=== PATIENT | female | born 1955 | race African-American/Black ===

== ENCOUNTER → 2017-01-02 | Outpatient (CLI) | payer OTHER ==
[~2017-01-02] MED LIST: DICL50 PO; EXEL4.6D TD; KLOR8TAB PO; MEMA28CA PO; OMEP40CA2 PO; RISP1TAB2 PO; Z.0.NO CURRENT MEDS
--- NOTE | 2017-01-03 22:50 | EKG ---
Date Performed: 01/02/2017 Time Performed: 14:12:23 PTAGE: 61 years EKG: Sinus rhythm NONSPECIFIC T-WAVE ABNORMALITY BORDERLINE ECG PREVIOUS TRACING : 05/27/2006 14.31 DOCTOR: Jacqueline Garcia Interpretating Date/Time 01/03/2017 22:48:46
== END ==
LOC: HCAV 13:48
DX: Z01.818 Encounter for other preprocedural examination (principal); R94.31 Abnormal electrocardiogram [ECG] [EKG]
CPT/HCPCS: 93005

== ENCOUNTER → 2017-03-14 | Outpatient (CLI) | payer OTHER ==
[~2017-03-14] MED LIST changes: +DONE10TA7 PO; +HYDR-3583 PO; +HYDR-4107 PO; +RISP0.5T2 PO; +WALKER/ADULT/FO1 MIS; +XARE10TA PO
== END ==
LOC: CPRE 11:22
PROVIDERS: ATTEND Orthopaedic Surgery Orthopaedic Trauma
DX: Z01.810 Encounter for preprocedural cardiovascular examination (principal); Z01.811 Encounter for preprocedural respiratory examination; Z01.812 Encounter for preprocedural laboratory examination; Z01.818 Encounter for other preprocedural examination; Z96.60 Presence of unspecified orthopedic joint implant; Z79.01 Long term (current) use of anticoagulants; Z13.9 Encounter for screening, unspecified; M79.609 Pain in unspecified limb

== ENCOUNTER 2017-03-27 05:11 | Inpatient (IN) | payer OTHER, MEDICARE ==
[~2017-03-27] VITALS: Ht 170.2 cm; Wt 75.3 kg
[2017-03-27] MEDS ORDERED: CHLORHEXIDINE GLUCONATE 2 % 1 PACK (2 CLOTHS) TOPICAL PRN (05:45)
[2017-03-27] MEDS ORDERED: LACTATED RINGER'S 1000 ML IV PRN (05:45)
[2017-03-27] MEDS ORDERED: INSULIN HUMAN REGULAR 1,000 UNITS/10 ML VIAL SQ PRN (05:45)
[2017-03-27] MEDS ORDERED: TRANEXAMIC ACID INJ 1,130 MG in SODIUM CHLORIDE 0.9% INJ 100 ML IV SCH (05:45)
[2017-03-27] MEDS ORDERED: ceFAZolin 2 GM PREMIX 50 ML IV SCH (05:45)
[2017-03-27] MEDS ORDERED: EXPAREL PERI-ARTICULAR INJECTION (TOTAL VOL. 60 ML) P-ARTICULR SCH ×2 (05:45)
[2017-03-27] MEDS ORDERED: VANCOMYCIN 1000 MG/NS 250 ML (for <70 kg) IV SCH ×2 (05:45)
[2017-03-27] MEDS ORDERED: SODIUM CHLORID 0.9% 500 ML IV PRN (05:45)
[2017-03-27] MEDS ORDERED: METOPROLOL TARTRATE 25 MG TAB PO PRN (05:45)
[2017-03-27] MEDS ORDERED: POVIDONE IODINE 5% (ANTISEPSIS KIT) 4 APPLICATIONS EACH NARE PRN (05:45)
[2017-03-27] MEDS ORDERED: CHLORHEXIDINE GLUCONATE 4% SOLN 120 ML BTL TOPICAL SCH (05:45)
[2017-03-27] MEDS ORDERED: DONE10TA7 PO (06:02)
[2017-03-27] MEDS ORDERED: HYDR-4107 PO (06:04)
[2017-03-27] MEDS ORDERED: RISP0.5T2 PO (06:04)
[2017-03-27 06:17] VITALS: BP 129/74; PULSE 61; RESP 20; TEMP 97.9; O2SAT 98
[2017-03-27 06:53] LABS: AUTOMATED NEUTROPHIL # 4.3 TH/MM3 (1.8-7.7); BASOPHIL % 0.5 % (0.0-2.0); EOSINOPHIL # 0.1 TH/MM3 (0-0.4); EOSINOPHIL % 2.1 % (0.0-4.0); HEMATOCRIT 37.9 % (35.0-46.0); HEMO FLAGS DIFF FINAL; LYMPH % 26.2 % (9.0-44.0); LYMPHOCYTE # 1.8 TH/MM3 (1.0-4.8); MEAN CELL VOLUME 92.2 FL (80.0-100.0); MEAN CORPUSCULAR HEMOGLOBIN 30.4 PG (27.0-34.0); MONO % 8.6 % (0.0-8.0); NEUT % 62.6 % (16.0-70.0); PLATELET COUNT 269 TH/MM3 (150-450); RED BLOOD COUNT 4.12 MIL/MM3 (4.00-5.30); RED CELL DISTRIBUTION WIDTH 13.3 % (11.6-17.2); WHITE BLOOD COUNT 6.9 TH/MM3 (4.0-11.0)
[2017-03-27 07:08] LABS: APTT (PATIENT) 29.6 SEC (24.3-30.1); PROTHROMBIN TIME - PATIENT 10.7 SEC (9.8-11.6)
[2017-03-27 07:14] LABS: ALT (GPT) 16 U/L (10-53); ANION GAP 6 MEQ/L (5-15); AST (GOT) 10 U/L (15-37); BICARBONATE 26.8 MEQ/L (21.0-32.0); BLOOD UREA NITROGEN 24 MG/DL (7-18); CHLORIDE 107 MEQ/L (98-107); GLOMERULAR FILTRATION RATE 104 ML/MIN (>89); POTASSIUM 3.8 MEQ/L (3.5-5.1); SODIUM (NA) 140 MEQ/L (136-145)
[2017-03-27 07:17] LABS: ALKALINE PHOSPHATASE 55 U/L (45-117); TOTAL BILIRUBIN ADULT 0.5 MG/DL (0.2-1.0)
[2017-03-27 07:54] LABS: BLOOD, URINE MOD (NEG); COMMENT (UR) CATH-CULT NOT IND; CULTURE IF INDICATED CATH CULTURE NOT IND; GLUCOSE,URINE NEG (NEG); KETONE, URINE NEG (NEG); MUCUS URINE MOD /lpf (OCC); NITRITE,URINE NEG (NEG); URINE COLOR YELLOW (YELLW/STRAW)
== END 2017-03-27 06:45 | disposition home or self-care (01) | DRG 554 ==
LOC: HSDI 05:11
PROVIDERS: ADMIT Orthopaedic Surgery Orthopaedic Trauma; ATTEND Orthopaedic Surgery Orthopaedic Trauma
DX: M16.2 Bilateral osteoarthritis resulting from hip dysplasia (principal); Z53.8 Procedure and treatment not carried out for other reasons
CPT/HCPCS: 80053; 81001; 85025; 85610; 85730; 99211; C9290; G0463

== ENCOUNTER → 2017-04-11 | Outpatient (CLI) | payer OTHER ==
[~2017-04-11] MED LIST changes: -DICL50 PO; -EXEL4.6D TD; -KLOR8TAB PO; -MEMA28CA PO; -OMEP40CA2 PO; -RISP1TAB2 PO; -Z.0.NO CURRENT MEDS
== END ==
LOC: CPRE 10:25
PROVIDERS: ATTEND Orthopaedic Surgery Orthopaedic Trauma
DX: M79.609 Pain in unspecified limb (principal)

== ENCOUNTER 2017-04-15 06:49 | Inpatient (IN) | payer OTHER, MEDICARE ==
[~2017-04-15] VITALS: Ht 165.1 cm; Wt 81.4 kg
[~2017-04-15 06:49] MED LIST changes: -HYDR-3583 PO; -WALKER/ADULT/FO1 MIS; -XARE10TA PO
[2017-04-15] MEDS ORDERED: WALKER/ADULT/FO1 MIS (07:00)
[2017-04-15] MEDS ORDERED: XARE10TA PO (07:00)
[2017-04-15] MEDS ORDERED: HYDR-3583 PO (07:00)
--- NOTE | 2017-04-15 07:01 | HHI.FF ---
Face to Face Verification Diagnosis: (1) Status post total hip replacement, right Physical Therapy Gait training Hip: Total hip, Protocol: Right Right LE Weight Bearing: WB as tolerated Nursing Dressing Changes: Daily dressing change, Coverderm/Primapore (begin adding xeroform to incision POD 10) I have seen patient Merna Brown on 04/15/17. My clinical findings support the need for the requested home health care services because: Ltd mobility - disease progression I certify that my clinical findings support that this patient is homebound because: Post-op weakness Estiven Renee Apr 15, 2017 07:01
[2017-04-15] MEDS ORDERED: VANCOMYCIN 1000 MG/NS 250 ML (for <70 kg) IV SCH ×2 (07:30)
[2017-04-15] MEDS ORDERED: SODIUM CHLORID 0.9% 500 ML IV PRN (07:30)
[2017-04-15] MEDS ORDERED: LACTATED RINGER'S 1000 ML IV PRN (07:30)
[2017-04-15] MEDS ORDERED: CHLORHEXIDINE GLUCONATE 2 % 1 PACK (2 CLOTHS) TOPICAL PRN (07:30)
[2017-04-15] MEDS ORDERED: METOPROLOL TARTRATE 25 MG TAB PO PRN (07:30)
[2017-04-15] MEDS ORDERED: POVIDONE IODINE 5% (ANTISEPSIS KIT) 4 APPLICATIONS EACH NARE PRN (07:30)
[2017-04-15] MEDS ORDERED: INSULIN HUMAN REGULAR 1,000 UNITS/10 ML VIAL SQ PRN (07:30)
[2017-04-15] MEDS ORDERED: ceFAZolin 2 GM PREMIX 50 ML IV SCH (07:30)
[2017-04-15] MEDS ORDERED: CHLORHEXIDINE GLUCONATE 4% SOLN 120 ML BTL TOPICAL SCH (07:30)
[2017-04-15] MEDS ORDERED: EXPAREL PERI-ARTICULAR INJECTION (TOTAL VOL. 60 ML) P-ARTICULR SCH ×2 (09:00)
[2017-04-15] MEDS ORDERED: TRANEXAMIC ACID INJ 1,200 MG in SODIUM CHLORIDE 0.9% INJ 100 ML IV SCH (09:00)
[2017-04-15] MEDS ORDERED: GENTAMICIN SULFATE 80 MG/2 ML VIAL ONE (09:05)
[2017-04-15] MEDS ORDERED: TRANEXAMIC ACID INJ 1,000 MG in SODIUM CHLORIDE 0.9% INJ 100 ML IV ONE (09:30)
[2017-04-15] MEDS ORDERED: MIDAZOLAM HCL 2 MG/2 ML VIAL ONE (10:45)
[2017-04-15] MEDS ORDERED: FAMOTIDINE 20 MG/2 ML VIAL ONE (10:45)
[2017-04-15] MEDS ORDERED: LIDOCAINE HCL 1% PF 5 ML AMPULE OTHER ONE (12:00)
[2017-04-15] MEDS ORDERED: PHENYLEPH/NS 1000 MCG/10 ML SYR IV ONE (12:00)
[2017-04-15] MEDS ORDERED: ESMOLOL HCL 100 MG/10 ML VIAL IV ONE (12:00)
[2017-04-15] MEDS ORDERED: ONDANSETRON HCL 4 MG/2 ML VIAL IV PUSH ONE (12:00)
[2017-04-15] MEDS ORDERED: DEXAMETHASONE SOD PHOS 4 MG/ML VIAL IV ONE (12:00)
[2017-04-15] MEDS ORDERED: PROPOFOL 200 MG/20 ML AMP IV ONE (12:00)
[2017-04-15] MEDS ORDERED: NEOSTIGMINE 3 MG/3 ML SYR IV ONE (12:00)
[2017-04-15] MEDS ORDERED: ROCURONIUM INJ 50 MG/5 ML SYRINGE IV PUSH ONE (12:00)
[2017-04-15] MEDS ORDERED: GLYCOPYRROLATE 1 MG/5 ML SYRINGE IV PUSH ONE (12:00)
[2017-04-15] MEDS ORDERED: hydrALAZINE HCL 20 MG/ML VIAL IV ONE (12:00)
[2017-04-15] MEDS ORDERED: SODIUM CHLORIDE 0.9% 20 ML VIAL IV ONE (12:00)
[2017-04-15] MEDS ORDERED: ePHEDrine/NS 25 MG/5 ML SYR IV ONE (12:00)
--- NOTE | 2017-04-15 13:08 | PD.OP ---
cc: Man Brooks MD Operative Report Date of Surgery: Apr 15, 2017 Preoperative Diagnosis: Severe right hip osteoarthritis with congenital hip dysplasia Postoperative Diagnosis: Procedure: Right total hip arthroplasty via anterior approach Anesthesia: Gen. Surgeon: Man Brooks Application Security Consultant(s): SANDRA Preston PA-C The surgical procedure was assisted by my physician assistant corporate secretary. My P.A. presence was necessary throughout this case for the manipulation and positioning of the surgical extremity. My P.A. was assisting me throughout the duration of this procedure. The skill set of a physician assistant corporate secretary was medically necessary to complete this procedure. During the surgical case the surgical services assistant was working at the back table and the physician assistant corporate secretary was directly assisting me. Operation and Findings: PLAN OF ACTIVITY Weight bear as tolerated. DRAINS: 7-mm BERTRAM drain. IMPLANTS USED DePuy Corail size [9] collared stem with a size [50] [place] Gription cup, [50 /32] Altrx poly liner, and a [+1] ceramic Biolox ceramic head. DETAILS OF PROCEDURE: This patient has a long history of hip pain. Patient was found to have severe osteoarthritis. The patient had radiographic evidence of joint space narrowing with [id number] arthritis and osteophytes around the acetabulum as well as the femoral head. There was also some cystic changes. The patient failed conservative treatment with pain medications, anti-inflammatories, physical therapy, assistive devices including a cane, as well as therapeutic injection of the hip. Patient's hip arthritis was limiting his ability to ambulate and perform activities of daily living. The patient wished to proceed with surgery and informed consent was obtained. Operative site was marked. I discussed both posterior approach and anterior approach with the patient and decision was made for anterior approach. Patient was brought to OR and placed on OR table. IV sedation and general anesthesia was administered by anesthesiologist. Patient positioned on a Tati table and was given IV antibiotics. Time-out procedure was performed. The hip and thigh were prepped with alcohol followed by Hibiclens. The thigh was draped in the usual sterile fashion. Clean Air Suite was used for this procedure. The procedure began with a 5-inch incision over the anterolateral thigh. Subcutaneous tissue was dissected with Bovie. The fascia over the tensa fasciae latae was incised. Care was taken to avoid injury to the lateral femoral cutaneous nerve. The tensor muscle was retracted laterally. Sartorius was retracted medially. Retractors were now placed. The reflected head of the rectus is now elevated. A capsulotomy was performed over the anterior head capsule. Sutures were placed to help retract the capsule. At this point the femoral head and neck were identified. With soft tissue protected, oscillating saw was used to make a cut through the femoral neck, the femoral head was now removed. At this point attention was turned to preparation of the acetabulum. The labrum was excised. The acetabulum was sequentially reamed up to size [50]. A [place] cup was now placed. Fluoroscopy was used to aid in identification of appropriate version. Cup was fully impacted and found to have excellent fit. Hole eliminator was now placed. A screw was placed through the cup for additional stability. The liner was now impacted into the cup. At this point the hip was externally rotated. A hook was placed around the proximal femur. The capsule was released off the lateral and medial femur. The hip was now extended and adducted. Retractors were placed around the proximal femur to allow for exposure. A box osteotome was used to remove the lateral cortex of the femoral neck. A broach was used to help lateralize the prosthesis. Canal finder was used to create a path down the canal. Next, the canal was sequentially broached up to size [9]. This was found to be an excellent fit. Calcar planer was placed. A standard head was placed, and the hip was reduced. The hip was found to have excellent stability with good range of motion. The leg lengths were measured under fluoroscopy and found to be equal compared to preoperatively. Trial broach was removed. The Corail stem was opened. Stem was fully impacted into the proximal femur in appropriate version. The femoral head was placed. The hip was again reduced. Fluoroscopy confirmed excellent alignment of prosthesis. The wound was thoroughly irrigated and capsule was closed with #1 Vicryl. The fascia over the tensor fasciae muscle was closed with #1 Vicryl, subcutaneous tissue was closed with 3-0 Vicryl and the skin was closed with juani and Dermabond skin closure. The capsule layers, muscle, and subcutaneous tissue were injected with a mixture of saline and bupivicaine. Dressings were applied. The patient was transferred to Recovery Room in stable condition. Man Brooks MD Apr 15, 2017 13:08
[2017-04-15] MEDS ORDERED: MORPHINE SULFATE 4 MG/ML INJ IV PUSH PRN (13:15)
[2017-04-15] MEDS ORDERED: ONDANSETRON HCL 4 MG/2 ML VIAL IVP PRN (13:15)
[2017-04-15] MEDS ORDERED: Post-op Orders (for Pharmacy) MISC XX ONE (13:15)
[2017-04-15] MEDS ORDERED: ACETAMINOPHEN/HYDROcodone 325 MG/10 MG TAB PO PRN (13:15)
[2017-04-15] MEDS ORDERED: NALOXONE HCL 0.4 MG/ML AMP IV PRN (13:15)
[2017-04-15] MEDS ORDERED: SODIUM CHLORIDE 0.9% FLUSH 5 ML FLUSH IVF PRN (13:15)
[2017-04-15] MEDS ORDERED: DO NOT ADM ANY ANTICOAGULANT DRUGS PRN (13:33)
[2017-04-15] MEDS: LACTATED RINGER'S 1000 ML INJ 1,000 ML IV SCH (13:40)
[2017-04-15] MEDS: KETOROLAC TROMETHAMINE 30 MG/ML (IVP) VIAL IV PUSH SCH (14:16)
--- NOTE | 2017-04-15 15:18 | RADRPT ---
EXAM DATE/TIME: 04/15/2017 14:35 [facility] COMPARISON: HIP RIGHT (AP&LAT 2/3VWS) WO AP PELVIS, April 15, 2017, 11:31. INDICATIONS : Post right hip surgery. MEDICAL HISTORY : None. SURGICAL HISTORY : None. ENCOUNTER: Initial ACUITY: 1 day PAIN SCORE: Non-responsive. LOCATION: Right hip and pelvis FINDINGS: Portable frontal and crosstable lateral views of the right hip demonstrate interval right total hip a rthroplasty. Femoral and acetabular components appear well seated. Surgical drain and skin juani ar e noted in subcutaneous emphysema noted. There is severe osteoarthritis of the left hip with flatteni ng of the femoral head contour suspect for avascular necrosis. CONCLUSION: Postsurgical changes right hip arthroplasty. Adrien Carroll MD on April 15, 2017 at 15:15 Board Certified Radiologist. This report was verified electronically.
--- NOTE | 2017-04-15 15:18 | RADRPT ---
EXAM DATE/TIME: 04/15/2017 11:31 [facility] COMPARISON: HIP RIGHT LATERAL ONLY W AP PELVIS, April 15, 2017, 14:35. INDICATIONS : Right total hip. MEDICAL HISTORY : Unobtainable SURGICAL HISTORY : Unobtainable ENCOUNTER: Initial ACUITY: 1 day PAIN SCORE: Non-responsive. LOCATION: Right hip FINDINGS: Intraoperative fluoroscopic views of the right hip demonstrate a right total hip arthroplasty. Femora l and acetabular components appear well-seated. CONCLUSION: Postoperative changes right hip arthroplasty. Adrien Carroll MD on April 15, 2017 at 15:16 Board Certified Radiologist. This report was verified electronically.
[2017-04-15 15:25] VITALS: BP 115/61; PULSE 79; RESP 18; TEMP 96.5; O2SAT 99
[2017-04-15] MEDS: ceFAZolin 2 GM PREMIX 50 ML IV SCH ×2 (17:24→23:21)
[2017-04-15] MEDS: SODIUM CHLORIDE 0.9% FLUSH 5 ML FLUSH IVF SCH (19:58)
[2017-04-15] MEDS: DONEPEZIL HCL 5 MG TAB PO SCH (19:59)
[2017-04-15 20:00] VITALS: BP 105/58; PULSE 88; RESP 20; TEMP 98.7; O2SAT 98
[2017-04-15] MEDS: ACETAMINOPHEN/HYDROcodone 325 MG/7.5 MG TAB PO PRN (21:13)
[2017-04-15] MEDS: VANCOMYCIN INJ 1,000 MG in SODIUM CHLOR 0.9% 250 ML INJ 250 ML IV SCH (21:13)
[2017-04-15 23:36] VITALS: O2SAT 98
[2017-04-16] VITALS (8 sets, daily range): BP systolic 92–121; BP diastolic 43–70; PULSE 58–70; RESP 17–20; TEMP 97.3–99.3; O2SAT 96–99
[2017-04-16] MEDS: KETOROLAC TROMETHAMINE 30 MG/ML (IVP) VIAL IV PUSH SCH ×2 (01:51→14:58)
[2017-04-16] MEDS: ACETAMINOPHEN/HYDROcodone 325 MG/7.5 MG TAB PO PRN ×5 (01:51→22:50)
[2017-04-16] MEDS: LACTATED RINGER'S 1000 ML INJ 1,000 ML IV SCH ×2 (01:52→14:04)
[2017-04-16] MEDS: ceFAZolin 2 GM PREMIX 50 ML IV SCH (05:13)
[2017-04-16 05:44] LABS: HEMATOCRIT 28.1 % (35.0-46.0); REVIEW FLAG FINAL
--- NOTE | 2017-04-16 08:06 | PD.ORT.PN ---
Subjective Subjective Remarks Doing well status post right total hip arthroplasty POD 1 Objective Vitals Vital Signs Date Time Temp Pulse Resp B/P (MAP) Pulse Ox O2 Delivery O2 Flow Rate FiO2 04/16/17 04:00 98.8 61 20 104/56 (72) 97 04/16/17 00:00 97.8 70 20 108/58 (75) 98 04/15/17 23:36 98 Nasal Cannula 2.00 04/15/17 20:00 98.7 88 20 105/58 (74) 98 04/15/17 20:00 98 Room Air 04/15/17 15:30 Room Air 04/15/17 15:25 96.5 79 18 115/61 (79) 99 04/15/17 15:00 98.2 76 18 102/54 (70) 97 Room Air 04/15/17 14:30 89 18 98/50 (66) 99 Room Air 04/15/17 14:15 96 18 115/59 (77) 99 Nasal Cannula 2 04/15/17 14:00 105 18 128/61 (83) 100 Nasal Cannula 2 04/15/17 13:45 102 15 107/63 (78) 99 Nasal Cannula 2 04/15/17 13:36 98.3 115 15 114/55 (74) 99 Nasal Cannula 2 I/O 04/15/17 04/15/17 04/15/17 04/16/17 04/16/17 04/16/17 07:00 15:00 23:00 07:00 15:00 23:00 Intake Total 1830 ml 300 ml 1098 ml 320 ml Output Total 300 ml 130 ml 70 ml 600 ml Balance 1530 ml 170 ml 1028 ml -280 ml Intake Oral 320 ml IV Total 330 ml 300 ml 1098 ml Other 1500 ml Output Urine Total 600 ml Drainage Total 130 ml 70 ml Estimated Blood Loss 300 ml # Voids 1 # Bowel Movements 0 Result Diagram: 04/16/17 0447 Imaging Last 24 hours Impressions Hip and Pelvis X-Ray 04/15/17 1304 Signed Impressions: Service Date/Time: Saturday, April 15, 2017 14:35 - CONCLUSION: Postsurgical changes right hip arthroplasty. Adrien Carroll MD Objective Remarks Right lower extremity: Clean dry dressings over incision. Drain site does have mild drainage with drain in place. Compartments are soft. Distally intact sensation with good capillary refills and strong dorsal flexion plantar flexion of ankle Assessment & Plan Problem List: (1) Status post total hip replacement, right ICD Codes: Z96.641 - Presence of right artificial hip joint Assessment and Plan Physical therapy weightbearing as tolerated twice a day Discontinue drain after physical therapy this morning Dry dressings over incision and then begin adding Xeroform POD 10, Xeroform over drain site after drain is pulled no Steri-Strips Incentive spirometry Lovenox Case management for rehabilitation placement SCDs Follow-up Dr. Brooks or PA in 2 weeks Bob Curran Jr. Apr 16, 2017 08:06
[2017-04-16] MEDS: SODIUM CHLORIDE 0.9% FLUSH 5 ML FLUSH IVF SCH ×2 (09:00→20:01)
[2017-04-16] MEDS: risperiDONE 0.5 MG TAB PO SCH (09:59)
[2017-04-16] MEDS ORDERED: INFLUENZA VIRUS VACCINE (QUADRIVALENT) 0.5 ML SYR IM ONE (10:00)
[2017-04-16] MEDS: VANCOMYCIN INJ 1,000 MG in SODIUM CHLOR 0.9% 250 ML INJ 250 ML IV SCH (10:11)
[2017-04-16] MEDS: ENOXAPARIN SODIUM 40 MG/0.4 ML SYRINGE SQ SCH (14:58)
[2017-04-16] MEDS: DOCUSATE SODIUM 100 MG CAP PO SCH (20:02)
[2017-04-16] MEDS: DONEPEZIL HCL 5 MG TAB PO SCH (20:02)
[2017-04-17] VITALS (7 sets, daily range): BP systolic 100–140; BP diastolic 47–69; PULSE 60–87; RESP 15–18; TEMP 98–99.9; O2SAT 96–99
[2017-04-17] MEDS: KETOROLAC TROMETHAMINE 30 MG/ML (IVP) VIAL IV PUSH SCH (02:00)
[2017-04-17] MEDS: ACETAMINOPHEN/HYDROcodone 325 MG/7.5 MG TAB PO PRN ×4 (02:14→21:05)
[2017-04-17] MEDS: LACTATED RINGER'S 1000 ML INJ 1,000 ML IV SCH ×2 (02:34→18:35)
--- NOTE | 2017-04-17 06:45 | PD.ORT.PN ---
Subjective Subjective Remarks POD 2 s/p right total hip doing well. pain controlled. out of bed with therapy Objective Vitals Vital Signs Date Time Temp Pulse Resp B/P (MAP) Pulse Ox O2 Delivery O2 Flow Rate FiO2 04/17/17 00:00 99.3 64 15 100/47 (64) 99 04/16/17 20:00 99 Room Air 04/16/17 19:00 98.4 64 17 102/52 (69) 99 04/16/17 18:33 96 Nasal Cannula 2.00 04/16/17 16:00 98.0 63 19 118/70 (86) 96 04/16/17 12:00 97.3 62 18 92/43 (59) 96 04/16/17 09:12 96 Nasal Cannula 2.00 04/16/17 08:00 99.3 58 19 121/69 (86) 96 I/O 04/16/17 04/16/17 04/16/17 04/17/17 04/17/17 04/17/17 07:00 15:00 23:00 07:00 15:00 23:00 Intake Total 1098 ml 1370 ml 979 ml 240 ml Output Total 70 ml 600 ml Balance 1028 ml 770 ml 979 ml 240 ml Intake Oral 1120 ml 480 ml 240 ml IV Total 1098 ml 250 ml 499 ml Output Urine Total 600 ml Drainage Total 70 ml # Voids 4 2 2 # Bowel Movements 1 0 0 Result Diagram: 04/16/17 0447 Imaging Last 24 hours Impressions Hip and Pelvis X-Ray 04/15/17 1304 Signed Impressions: Service Date/Time: Saturday, April 15, 2017 14:35 - CONCLUSION: Postsurgical changes right hip arthroplasty. Adrien Carroll MD Objective Remarks Right lower extremity: Clean dry dressings over incision. Drain site does have mild drainage with drain in place. Compartments are soft. Distally intact sensation with good capillary refills and strong dorsal flexion plantar flexion of ankle Assessment & Plan Problem List: (1) Status post total hip replacement, right ICD Codes: Z96.641 - Presence of right artificial hip joint Assessment and Plan 1) Right Anterior FRIEDA - POD 2 Physical therapy weightbearing as tolerated twice a day Dry dressings over incision and then begin adding Xeroform POD 10, Xeroform over drain site after drain is pulled no Steri-Strips Incentive spirometry Lovenox Case management for rehabilitation placement SCDs clear for DC to rehab when arrangements made Follow-up Dr. Brooks or PA in 2 weeks Estiven Renee Apr 17, 2017 06:45
--- NOTE | 2017-04-17 07:17 | HHI.DS ---
Discharge Summary Admission Date Apr 15, 2017 at 06:49 Discharge Date: Apr 17, 2017 Admitting Diagnosis Right hip osteoarthritis Diagnosis: (1) Status post total hip replacement, right Diagnosis: Principal ICD Codes: Z96.641 - Presence of right artificial hip joint Procedures Right anterior total hip arthroplasty CBC/BMP: 04/16/17 0447 Significant Findings Laboratory Tests Test 04/16/17 04:47 Hemoglobin 9.2 GM/DL (11.6-15.3) Hematocrit 28.1 % (35.0-46.0) PE at Discharge Right lower extremity: Clean dry dressings over incision. Drain site does have mild drainage with drain in place. Compartments are soft. Distally intact sensation with good capillary refills and strong dorsal flexion plantar flexion of ankle Hospital Course patient admitted for outpatient for elective right total hip arthroplasty. Tolerated the procedure well. Was admitted 6 north. Was out of bed on postoperative day 0 in standing with therapy. By postoperative day 1 she was ambulating with a walker. Her pain is well-controlled. She is hemodynamically stable, ambulating with therapy, and fit for discharge to rehabilitation facility. She'll be discharged to a rehabilitation facility whenever arrangements are made. She'll remain weightbearing as tolerated. She will have daily dressing changes. She'll follow-up in the office Dr. Christopher or his PA in 2 weeks Pt Condition on Discharge: Fair Discharge Disposition: Discharge to SNF Discharge Instructions Diet Instructions: As Tolerated, No Restrictions Activities You Can Perform: Weight Bearing as Ahsan Follow up Referrals: Orthopedics - 2 Weeks @ [facility] with Man Christopher MD New Medications: Hydrocodone-Acetaminophen (Hydrocodone-Acetaminophen) 10-325 mg Tab 1 TAB PO Q4H PRN for PAIN, #60 TAB 0 Refills Rivaroxaban (Xarelto) 10 Mg Tab 10 MG PO DAILY for Blood Clot Prevention, #14 TAB 0 Refills Walker/Adult/Folding (Walker/Adult/Folding) 1 Mis Mis EA .ROUTE DIRECTED, #1 0 Refills Continued Medications: Donepezil (Donepezil) 10 Mg Tab 10 MG PO HS for Dementia, TAB 0 Refills Risperidone (Risperidone) 0.5 Mg Tab 0.5 MG PO DAILY, TAB 0 Refills Discontinued Medications: Hydrocodone-Acetaminophen (Hydrocodone-Acetaminophen) 5-300 Mg Tab 1 TAB PO Q4H PRN for PAIN, TAB 0 Refills Estiven Renee Apr 17, 2017 07:17
[2017-04-17] MEDS: DOCUSATE SODIUM 100 MG CAP PO SCH ×2 (08:55→21:05)
[2017-04-17] MEDS: risperiDONE 0.5 MG TAB PO SCH (08:55)
[2017-04-17] MEDS: SODIUM CHLORIDE 0.9% FLUSH 5 ML FLUSH IVF SCH ×2 (08:56→21:05)
[2017-04-17] MEDS: ENOXAPARIN SODIUM 40 MG/0.4 ML SYRINGE SQ SCH (14:58)
[2017-04-17] MEDS: DONEPEZIL HCL 5 MG TAB PO SCH (21:05)
[2017-04-18 00:02] VITALS: BP 101/52; PULSE 75; RESP 17; TEMP 99.2; O2SAT 97
[2017-04-18] MEDS: LACTATED RINGER'S 1000 ML INJ 1,000 ML IV SCH ×2 (02:14→16:04)
[2017-04-18] MEDS: ACETAMINOPHEN/HYDROcodone 325 MG/7.5 MG TAB PO PRN (06:26)
--- NOTE | 2017-04-18 07:12 | PD.ORT.PN ---
Subjective Subjective Remarks Doing well. No new complaints Objective Vitals Vital Signs Date Time Temp Pulse Resp B/P (MAP) Pulse Ox O2 Delivery O2 Flow Rate FiO2 04/18/17 00:02 99.2 75 17 101/52 (68) 97 04/17/17 21:25 97 Nasal Cannula 2.00 04/17/17 20:00 99.4 80 17 111/60 (77) 97 04/17/17 16:00 99.9 85 18 118/62 (80) 96 04/17/17 12:00 98.0 87 16 105/59 (74) 97 04/17/17 10:00 16 04/17/17 09:18 96 Nasal Cannula 2.00 04/17/17 08:00 98.5 60 16 140/69 (92) 98 I/O 04/17/17 04/17/17 04/17/17 04/18/17 04/18/17 04/18/17 07:00 15:00 23:00 07:00 15:00 23:00 Intake Total 240 ml 960 ml 240 ml Balance 240 ml 960 ml 240 ml Intake Oral 240 ml 960 ml 240 ml IV Total 0 ml # Voids 2 5 4 # Bowel Movements 0 1 0 Result Diagram: 04/16/17 0447 Imaging Last 24 hours Impressions Hip and Pelvis X-Ray 04/15/17 1304 Signed Impressions: Service Date/Time: Saturday, April 15, 2017 14:35 - CONCLUSION: Postsurgical changes right hip arthroplasty. Adrien Carroll MD Procedures Right anterior total hip arthroplasty Objective Remarks Right lower extremity: Clean dry dressings over incision. Drain site does have mild drainage. Compartments are soft. Distally intact sensation with good capillary refills and strong dorsal flexion plantar flexion of ankle Assessment & Plan Problem List: (1) Status post total hip replacement, right ICD Codes: Z96.641 - Presence of right artificial hip joint Assessment and Plan 1) Right Anterior FRIEDA - POD 3 Physical therapy weightbearing as tolerated twice a day Dry dressings over incision and then begin adding Xeroform POD 10, Xeroform over drain site Incentive spirometry Lovenox Case management for rehabilitation placement SCDs clear for DC to rehab when arrangements made Follow-up Dr. Brooks or PA in 2 weeks Bob Curran Jr. Apr 18, 2017 07:12
[2017-04-18 08:00] VITALS: BP 107/54; PULSE 63; RESP 16; TEMP 98.4; O2SAT 97
[2017-04-18] MEDS: DOCUSATE SODIUM 100 MG CAP PO SCH (08:53)
[2017-04-18] MEDS: risperiDONE 0.5 MG TAB PO SCH (08:53)
[2017-04-18] MEDS: SODIUM CHLORIDE 0.9% FLUSH 5 ML FLUSH IVF SCH (08:53)
[2017-04-18 10:46] VITALS: O2SAT 98
[2017-04-18 12:00] VITALS: BP 108/69; PULSE 77; RESP 16; TEMP 98; O2SAT 97
[2017-04-18] MEDS ORDERED: NEOSTIGMINE 3 MG/3 ML SYR IV ONE (12:00)
[2017-04-18] MEDS ORDERED: ESMOLOL HCL 100 MG/10 ML VIAL IV ONE (12:00)
[2017-04-18] MEDS ORDERED: DEXAMETHASONE SOD PHOS 4 MG/ML VIAL IV ONE (12:00)
[2017-04-18] MEDS ORDERED: ROCURONIUM INJ 50 MG/5 ML SYRINGE IV PUSH ONE (12:00)
[2017-04-18] MEDS ORDERED: LACTATED RINGER'S 1000 ML INJ 1,000 ML IV ONE (12:00)
[2017-04-18] MEDS ORDERED: GLYCOPYRROLATE 1 MG/5 ML SYRINGE IV PUSH ONE (12:00)
[2017-04-18] MEDS ORDERED: ePHEDrine/NS 25 MG/5 ML SYR IV ONE (12:00)
[2017-04-18] MEDS ORDERED: PHENYLEPH/NS 1000 MCG/10 ML SYR IV ONE (12:00)
[2017-04-18] MEDS ORDERED: LIDOCAINE HCL 1% PF 5 ML AMPULE OTHER ONE (12:00)
[2017-04-18] MEDS ORDERED: PROPOFOL 200 MG/20 ML AMP IV ONE (12:00)
[2017-04-18] MEDS ORDERED: SODIUM CHLORIDE 0.9% 10 ML VIAL IV FLUSH ONE (12:00)
[2017-04-18] MEDS ORDERED: ONDANSETRON HCL 4 MG/2 ML VIAL IV PUSH ONE (12:00)
[2017-04-18] MEDS ORDERED: hydrALAZINE HCL 20 MG/ML VIAL IV ONE (12:00)
[2017-04-18] MEDS: ENOXAPARIN SODIUM 40 MG/0.4 ML SYRINGE SQ SCH (12:34)
[2017-04-18 16:58] VITALS: O2SAT 97
== END 2017-04-18 17:05 | DRG 470 ==
LOC: HSDI 06:49 → N06A 15:26
PROVIDERS: ADMIT Orthopaedic Surgery Orthopaedic Trauma; ATTEND Orthopaedic Surgery Orthopaedic Trauma
PROC: 0SR904A Replacement of Right Hip Joint with Ceramic on Polyethylene Synthetic Substitute, Uncemented, Open Approach (ICD-10-PCS; principal; 2017-04-15 11:00)
DX: M16.11 Unilateral primary osteoarthritis, right hip (principal); F03.90 Unspecified dementia, unspecified severity, without behavioral disturbance, psychotic disturbance, mood disturbance, and anxiety; I10 Essential (primary) hypertension; Q65.89 Other specified congenital deformities of hip; Z23 Encounter for immunization
CPT/HCPCS: 73501; 73502; 76000; 85014; 85018; 86850; 86900; 86901; 90471; 90686; C1776; C9290; G0008; J0360; J0690; J1100; J1580; J1650; J1885; J2250; J2370; J2405; J2710; J3010; J3370; J7050; J7120; Q2038

== ENCOUNTER → 2017-08-05 | Outpatient (CLI) | payer OTHER ==
[~2017-08-05] MED LIST changes: +ASPI1CHW4 CHEW; +HYDR-3583 PO; -HYDR-4107 PO; +MEMA1TAB PO; +WALKER/ADULT/FO1 MIS; +XARE10TA PO
== END ==
LOC: CPRE 09:27
PROVIDERS: ATTEND Orthopaedic Surgery Orthopaedic Trauma
DX: Z01.812 Encounter for preprocedural laboratory examination (principal)

== ENCOUNTER → 2017-08-06 | Outpatient (CLI) | payer OTHER ==
[~2017-08-06] MED LIST changes: -ASPI1CHW4 CHEW; -XARE10TA PO
--- NOTE | 2017-08-07 22:40 | EKG ---
Date Performed: 08/06/2017 Time Performed: 14:40:49 PTAGE: 61 years EKG: SINUS BRADYCARDIA NONSPECIFIC T-WAVE ABNORMALITY BORDERLINE ECG PREVIOUS TRACING : 01/02/2017 14.12 Since previous tracing, no significant change noted DOCTOR: Montrell Lamas Interpretating Date/Time 08/07/2017 22:39:40
== END ==
LOC: HCAV 14:26
PROVIDERS: ATTEND Orthopaedic Surgery Orthopaedic Trauma
DX: Z01.810 Encounter for preprocedural cardiovascular examination (principal); Z01.811 Encounter for preprocedural respiratory examination
CPT/HCPCS: 93005

== ENCOUNTER 2017-08-19 05:15 | Inpatient (IN) | payer OTHER, MEDICARE ==
[~2017-08-19] VITALS: Ht 165.1 cm; Wt 79.3 kg
[~2017-08-19 05:15] MED LIST changes: -WALKER/ADULT/FO1 MIS
[2017-08-19] MEDS ORDERED: CHLORHEXIDINE GLUCONATE 4% SOLN 120 ML BTL TOPICAL SCH (05:45)
[2017-08-19] MEDS ORDERED: DEXAMETHASONE SOD PHOS 20 MG/5 ML VIAL IV PUSH SCH (05:45)
[2017-08-19] MEDS ORDERED: CHLORHEXIDINE GLUCONATE 2 % 1 PACK (2 CLOTHS) TOPICAL PRN (05:45)
[2017-08-19] MEDS ORDERED: TRANEXAMIC ACID IV SCH (05:45)
[2017-08-19] MEDS ORDERED: LACTATED RINGER'S 1000 ML IV PRN (05:45)
[2017-08-19] MEDS ORDERED: EXPAREL PERI-ARTICULAR INJECTION (TOTAL VOL. 60 ML) P-ARTICULR SCH ×2 (05:45)
[2017-08-19] MEDS ORDERED: POVIDONE IODINE 5% (ANTISEPSIS KIT) 4 APPLICATIONS EACH NARE PRN (05:45)
[2017-08-19] MEDS ORDERED: ceFAZolin 2 GM PREMIX 50 ML IV SCH (05:45)
[2017-08-19] MEDS ORDERED: SODIUM CHLORIDE 0.9% IV SCH (05:45)
[2017-08-19] MEDS ORDERED: VANCOMYCIN 1000 MG/NS 250 ML (for <70 kg) IV SCH ×2 (05:45)
[2017-08-19] MEDS ORDERED: METOPROLOL TARTRATE 25 MG TAB PO PRN (05:45)
[2017-08-19] MEDS ORDERED: SODIUM CHLORID 0.9% 500 ML IV PRN (05:45)
[2017-08-19] MEDS ORDERED: GENTAMICIN SULFATE 80 MG/2 ML VIAL ONE (06:12)
[2017-08-19] MEDS ORDERED: HYDR-3583 PO (06:35)
[2017-08-19] MEDS ORDERED: XARE10TA PO (06:35)
[2017-08-19] MEDS ORDERED: ASPI1CHW4 CHEW (06:35)
[2017-08-19] MEDS ORDERED: BUPIVACAINE/EPINEPHRINE 0.25% 50 ML VIAL ONE (07:11)
--- NOTE | 2017-08-19 08:58 | PD.OP ---
cc: Man Brooks MD Operative Report Date of Surgery: Aug 19, 2017 Preoperative Diagnosis: Severe left hip osteoarthritis, congenital hip dysplasia Postoperative Diagnosis: Procedure: Left total hip arthroplasty by Anterior approach Anesthesia: Gen. Surgeon: Man Brooks Integrated Logistics Programs Director(s): SANDRA Modi PA-C The surgical procedure was assisted by my physician medicine assistant. My P.A. presence was necessary throughout this case for the manipulation and positioning of the surgical extremity. My P.A. was assisting me throughout the duration of this procedure. The skill set of a physician medicine assistant was medically necessary to complete this procedure. During the surgical case the surgical training specialist was working at the back table and the physician medicine assistant was directly assisting me. Operation and Findings: PLAN OF ACTIVITY Weight bear as tolerated. DRAINS: 7-mm BERTRAM drain. IMPLANTS USED DePuy Corail size [9] collared stem with a size [48] [place] Gription cup, [48/ 32] Altrx poly liner, and a [32+1] ceramic Biolox ceramic head. DETAILS OF PROCEDURE: This patient has a long history of hip pain. Patient was found to have severe left hip osteoarthritis secondary to congenital hip dysplasia. The patient had radiographic evidence of joint space narrowing with [id number] arthritis and osteophytes around the acetabulum as well as the femoral head. There was also some cystic changes. The patient failed conservative treatment with pain medications, anti-inflammatories, physical therapy, assistive devices including a cane, as well as therapeutic injection of the hip. Patient's hip arthritis was limiting his ability to ambulate and perform activities of daily living. The patient wished to proceed with surgery and informed consent was obtained. Operative site was marked. I discussed both posterior approach and anterior approach with the patient and decision was made for anterior approach. Patient was brought to OR and placed on OR table. IV sedation and general anesthesia was administered by anesthesiologist. Patient positioned on a Tati table and was given IV antibiotics. Time-out procedure was performed. The hip and thigh were prepped with alcohol followed by Hibiclens. The thigh was draped in the usual sterile fashion. Clean Air Suite was used for this procedure. The procedure began with a 5-inch incision over the anterolateral thigh. Subcutaneous tissue was dissected with Bovie. The fascia over the tensa fasciae latae was incised. Care was taken to avoid injury to the lateral femoral cutaneous nerve. The tensor muscle was retracted laterally. Sartorius was retracted medially. Retractors were now placed. The reflected head of the rectus is now elevated. A capsulotomy was performed over the anterior head capsule. Sutures were placed to help retract the capsule. At this point the femoral head and neck were identified. With soft tissue protected, oscillating saw was used to make a cut through the femoral neck, the femoral head was now removed. At this point attention was turned to preparation of the acetabulum. The labrum was excised. The acetabulum was sequentially reamed up to size [48]. Patient had a very shallow acetabulum. The cup was medialized down to the medial wall. A trial cup was placed and visualized under fluoroscopy. Trial was removed and a [place] cup was now placed. Fluoroscopy was used to aid in identification of appropriate version. Cup was fully impacted and found to have excellent fit. Hole eliminator was now placed. 2 screws were placed for additional stability given the dysplasia of the acetabulum. The liner was now impacted into the cup. At this point the hip was externally rotated. A hook was placed around the proximal femur. The capsule was released off the lateral and medial femur. The hip was now extended and adducted. Retractors were placed around the proximal femur to allow for exposure. A box osteotome was used to remove the lateral cortex of the femoral neck. A broach was used to help lateralize the prosthesis. Canal finder was used to create a path down the canal. Next, the canal was sequentially broached up to size [9]. This was found to be an excellent fit. Calcar planer was placed. A standard head was placed, and the hip was reduced. The hip was found to have excellent stability with good range of motion. The leg lengths were measured under fluoroscopy and found to be equal compared to preoperatively. Trial broach was removed. The [place] stem was opened. Stem was fully impacted into the proximal femur in appropriate version. The femoral head was placed. The hip was again reduced. Fluoroscopy confirmed excellent alignment of prosthesis. The wound was thoroughly irrigated and capsule was closed with #1 Vicryl. The fascia over the tensor fasciae muscle was closed with #1 Vicryl, subcutaneous tissue was closed with 3-0 Vicryl and the skin was closed with juani and Dermabond skin closure. The capsule layers, muscle, and subcutaneous tissue were injected with a mixture of saline and bupivicaine. Dressings were applied. The patient was transferred to Recovery Room in stable condition. Man Brooks MD Aug 19, 2017 08:58
[2017-08-19] MEDS ORDERED: ACETAMINOPHEN/HYDROcodone 325 MG/7.5 MG TAB PO PRN (09:00)
[2017-08-19] MEDS ORDERED: NALOXONE HCL 0.4 MG/ML AMP IV PUSH PRN (09:00)
[2017-08-19] MEDS ORDERED: ACETAMINOPHEN/HYDROcodone 325 MG/10 MG TAB PO PRN (09:00)
[2017-08-19] MEDS ORDERED: ACETAMINOPHEN/HYDROcodone 325 MG/5 MG TAB PO PRN (09:00)
[2017-08-19] MEDS ORDERED: MORPHINE SULFATE 4 MG/ML INJ IV PUSH PRN (09:00)
[2017-08-19] MEDS ORDERED: ONDANSETRON HCL 4 MG/2 ML VIAL IVP PRN (09:00)
[2017-08-19] MEDS ORDERED: *ONDANSETRON 4 MG VIAL PERIprocedural Use ONLY ONE (09:40)
[2017-08-19] MEDS: LACTATED RINGER'S 1000 ML INJ 1,000 ML IV SCH (09:53)
--- NOTE | 2017-08-19 09:57 | RADRPT ---
EXAM DATE/TIME: 08/19/2017 07:15 [facility] COMPARISON: No previous studies available for comparison. INDICATIONS : Left total hip arthroplasty. MEDICAL HISTORY : Unobtainable. SURGICAL HISTORY : Unobtainable. ENCOUNTER: Initial ACUITY: 1 day PAIN SCORE: Non-responsive. LOCATION: Left hip CONCLUSION: Fluoroscopic images during left hip prosthesis placement. No hardware loosening. Cristopher Simons MD on August 19, 2017 at 9:54 Board Certified Radiologist. This report was verified electronically.
[2017-08-19] MEDS: risperiDONE 0.5 MG TAB PO SCH (10:00)
[2017-08-19] MEDS: MEMANTINE HCL 5 MG TAB PO SCH (10:00)
[2017-08-19] MEDS ORDERED: DO NOT ADM ANY ANTICOAGULANT DRUGS PRN (10:00)
[2017-08-19] MEDS: CELECOXIB 200 MG CAP PO SCH ×2 (10:00→20:44)
[2017-08-19] MEDS ORDERED: Post-op Orders (for Pharmacy) XX ONE (10:00)
[2017-08-19] MEDS ORDERED: KETOROLAC TROMETHAMINE 30 MG/ML (IVP) VIAL IV PUSH SCH (10:00)
[2017-08-19] MEDS ORDERED: TRANEXAMIC ACID INJ 1,000 MG in SODIUM CHLORIDE 0.9% INJ 100 ML IV ONE (10:00)
[2017-08-19] MEDS: ACETAMINOPHEN 1000 MG/100 ML 100 ML IV SCH ×2 (10:21→23:04)
--- NOTE | 2017-08-19 10:30 | RADRPT ---
EXAM DATE/TIME: 08/19/2017 09:46 [facility] COMPARISON: HIP LEFT (AP&LAT 2/3VWS) WO AP PELVIS, August 19, 2017, 7:15. INDICATIONS : Post op left total hip replacement. MEDICAL HISTORY : None. SURGICAL HISTORY : None. ENCOUNTER: Initial ACUITY: 1 day PAIN SCORE: 0/10 LOCATION: Left Hip FINDINGS: A lateral view of the left hip with AP pelvis was obtained. No definite fractures, dislocations, lyt ic or sclerotic lesions are seen. Bilateral hip prostheses. Post surgical changes left hip. CONCLUSION: Postoperative left hip. Cristopher Simons MD on August 19, 2017 at 10:26 Board Certified Radiologist. This report was verified electronically.
[2017-08-19] MEDS ORDERED: *MEPERIDINE 25 MG INJ VIAL PERIprocedural Use ONLY ONE (10:43)
[2017-08-19 12:30] VITALS: BP 128/66; PULSE 68; RESP 18; TEMP 96.3; O2SAT 100
[2017-08-19] MEDS: ceFAZolin 2 GM PREMIX 50 ML IV SCH ×2 (14:48→19:33)
[2017-08-19 16:00] VITALS: BP 114/62; PULSE 55; RESP 18; TEMP 96.5; O2SAT 98
[2017-08-19 20:30] VITALS: BP 154/72; PULSE 55; RESP 16; TEMP 99.6; O2SAT 100
[2017-08-19] MEDS: VANCOMYCIN INJ 1,000 MG in SODIUM CHLOR 0.9% 250 ML INJ 250 ML IV SCH (20:45)
[2017-08-19] MEDS ORDERED: DONEPEZIL HCL 5 MG TAB PO SCH (21:00)
[2017-08-19 21:35] VITALS: O2SAT 98
[2017-08-20 00:06] VITALS: BP 153/70; PULSE 59; RESP 16; TEMP 99.1; O2SAT 100
[2017-08-20] MEDS: LACTATED RINGER'S 1000 ML INJ 1,000 ML IV SCH (01:30)
[2017-08-20] MEDS: ceFAZolin 2 GM PREMIX 50 ML IV SCH (01:30)
[2017-08-20 04:15] VITALS: BP 123/63; PULSE 60; RESP 16; TEMP 98.5; O2SAT 100
--- NOTE | 2017-08-20 06:31 | PD.ORT.PN ---
Subjective Subjective Remarks Resting comfortably no new complaints Objective Vitals Vital Signs Date Time Temp Pulse Resp B/P (MAP) Pulse Ox O2 Delivery O2 Flow Rate FiO2 08/20/17 04:15 98.5 60 16 123/63 (83) 100 08/20/17 00:06 99.1 59 16 153/70 (97) 100 08/19/17 21:35 98 Nasal Cannula 2.00 08/19/17 20:30 99.6 55 16 154/72 (99) 100 08/19/17 16:09 Nasal Cannula 2.00 08/19/17 16:00 96.5 55 18 114/62 (79) 98 08/19/17 12:30 96.3 68 18 128/66 (86) 100 08/19/17 11:30 97.8 59 13 118/63 (81) 100 Nasal Cannula 2 08/19/17 11:00 56 12 119/58 (78) 100 Nasal Cannula 2 08/19/17 10:30 61 16 129/66 (87) 100 Nasal Cannula 2 08/19/17 10:15 59 15 133/67 (89) 100 Nasal Cannula 2 08/19/17 10:00 53 15 129/66 (87) 100 Nasal Cannula 2 08/19/17 09:45 54 13 101/59 (73) 100 Nasal Cannula 2 08/19/17 09:30 68 15 112/62 (79) 100 Nasal Cannula 2 08/19/17 09:28 97.7 79 18 103/67 (79) 99 Nasal Cannula 4 I/O 08/19/17 08/19/17 08/19/17 08/20/17 08/20/17 08/20/17 07:00 15:00 23:00 07:00 15:00 23:00 Intake Total 3400 ml 240 ml Output Total 3500 ml Balance -100 ml 240 ml Intake Oral 240 ml 240 ml IV Total 3160 ml Output Estimated Blood Loss 500 ml Other 3000 ml # Voids 2 2 # Bowel Movements 0 0 Imaging Last 24 hours Impressions Hip and Pelvis X-Ray 08/19/17 0859 Signed Impressions: Service Date/Time: Saturday, August 19, 2017 09:46 - CONCLUSION: Postoperative left hip. Cristopher Simons MD Objective Remarks Left lower extremity: Clean dry dressings intact. Minimal swelling. No erythema. Minimal pain with gentle movement of hip. Distally intact sensation with active dorsiflexion plantar flexion of foot. Good distal pulses and capillary refills Assessment & Plan Assessment and Plan Left total hip arthroplasty anterior approach POD 1 Weightbearing as tolerated with physical therapy twice daily Lovenox while in hospital then convert to Xarelto 14 days. After 14 days Xarelto convert to 81 mg of aspirin twice a day 14 days Maintain dressing for 5 days then discontinue and change to Prim[place] only. Ensuring that Dermabond tape remains over incision Incentive spirometry SCDs Case management for rehabilitation placement Follow-up Dr. Brooks or [place] in 2 weeks Bob Curran Jr. Aug 20, 2017 06:30
[2017-08-20 07:17] LABS: HEMATOCRIT 28.2 % (35.0-46.0); HEMOGLOBIN 9.4 GM/DL (11.6-15.3)
[2017-08-20 08:00] VITALS: BP 145/70; PULSE 60; RESP 17; TEMP 98.6; O2SAT 99
[2017-08-20] MEDS: MEMANTINE HCL 5 MG TAB PO SCH (08:51)
[2017-08-20] MEDS: risperiDONE 0.5 MG TAB PO SCH (08:51)
[2017-08-20] MEDS: CELECOXIB 200 MG CAP PO SCH (08:51)
[2017-08-20] MEDS: VANCOMYCIN INJ 1,000 MG in SODIUM CHLOR 0.9% 250 ML INJ 250 ML IV SCH (08:52)
[2017-08-20] MEDS ORDERED: ENOXAPARIN SODIUM 40 MG/0.4 ML SYRINGE SQ SCH (09:00)
[2017-08-20] MEDS: ACETAMINOPHEN 1000 MG/100 ML 100 ML IV SCH (10:00)
[2017-08-20 12:00] VITALS: BP 121/57; PULSE 63; RESP 17; TEMP 98.4; O2SAT 100
[2017-08-20 16:00] VITALS: BP 102/56; PULSE 65; RESP 17; TEMP 99.1; O2SAT 96
[2017-08-20] MEDS ORDERED: DOCUSATE SODIUM 100 MG CAP PO SCH (21:00)
== END 2017-08-20 18:25 | DRG 470 ==
LOC: HSDI 05:15 → N06B 12:06
PROVIDERS: ADMIT Orthopaedic Surgery Orthopaedic Trauma; ATTEND Orthopaedic Surgery Orthopaedic Trauma
PROC: 0SRB04A Replacement of Left Hip Joint with Ceramic on Polyethylene Synthetic Substitute, Uncemented, Open Approach (ICD-10-PCS; principal; 2017-08-19 06:40)
DX: M16.12 Unilateral primary osteoarthritis, left hip (principal); Z96.641 Presence of right artificial hip joint; Q65.89 Other specified congenital deformities of hip
CPT/HCPCS: 73501; 73502; 76000; 85014; 85018; 86850; 86900; 86901; 86920; C1776; C9290; J0131; J0690; J1100; J1580; J1650; J1885; J2175; J2405; J3010; J3370; J7050; J7120